=== PATIENT | female | born 1960 | race Caucasian/White ===

== ENCOUNTER 2022-06-10 02:09 | Emergency (ER) | payer SELFPAY ==
[~2022-06-10] VITALS: Ht 165.1 cm; Wt 57.0 kg
[2022-06-10 02:12] VITALS: BP 119/54
[2022-06-10] MEDS ORDERED: ACETAMINOPHEN 325MG TABLET PO NR (04:53)
[2022-06-10] MEDS ORDERED: TRAMADOL 50MG TABLET PO ONE (05:15)
== END 2022-06-10 06:36 | disposition left against medical advice (07) ==
LOC: ER 02:18
DX: J06.9 Acute upper respiratory infection, unspecified (principal)
CPT/HCPCS: 71045; 99283

== ENCOUNTER 2024-12-02 18:49 | Emergency (ER) | payer MEDICARE ==
[~2024-12-02] VITALS: Ht 165.1 cm; Wt 58.0 kg
[2024-12-02 18:55] VITALS: BP 118/72; PULSE 101; RESP 16; TEMP 36.7; O2SAT 97
[2024-12-02] MEDS: HYDROCODONE/ACETAMINOPHEN 7.5/325MG TABLET PO ONE (20:19)
== END 2024-12-02 22:02 | disposition home or self-care (01) ==
LOC: ER 18:49
DX: S09.90XA Unspecified injury of head, initial encounter (principal); F32.A Depression, unspecified; K50.90 Crohn's disease, unspecified, without complications; R07.9 Chest pain, unspecified; Z88.2 Allergy status to sulfonamides; W07.XXXA Fall from chair, initial encounter; Y93.89 Activity, other specified; Y92.89 Other specified places as the place of occurrence of the external cause; Y99.8 Other external cause status
CPT/HCPCS: 73030; 73060; 93005; 99284